=== PATIENT | male | born 1955 | race Caucasian/White ===

== ENCOUNTER 2021-10-21 23:32 | Emergency (ER) | payer MEDICARE, OTHER ==
[~2021-10-21] VITALS: Ht 177.8 cm; Wt 68.0 kg
--- OUTSIDE RECORDS SUMMARY | 2021-10-22 00:06 | XMS ---
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 Emelina has no Care Guidelines for this patient. Kimberly VISIT COUNT (12 MO.) 1 TITA Mary TOTAL 1 NOTE: Visits indicate total known visits. ED/C VISIT TRACKING (12 MO.) 10/21/2021 23:33 TITA Santos [place] TYPE: Emergency COMPLAINT: - BLOOD SUGAR PROBLEM INPATIENT VISIT TRACKING (12 MO.) No inpatient visits to display in this time frame [email or web address]
== END 2021-10-22 02:02 | disposition home or self-care (01) ==
LOC: ED 23:32
DX: E11.65 Type 2 diabetes mellitus with hyperglycemia (principal); F19.10 Other psychoactive substance abuse, uncomplicated
CPT/HCPCS: 36415; 80053; 81001; 82010; 82800; 85025; 99285; G0480